=== PATIENT | female | born 1945 | race Two or more races ===

== ENCOUNTER 2025-02-26 10:25 | Inpatient (IN) | payer MEDICARE, MEDICAID ==
[~2025-02-26] VITALS: Ht 154.9 cm; Wt 77.1 kg
--- NOTE | 2025-02-26 11:10 | ED.PDOC ---
History of Present Illness HPI Comments 79 y.o female with PMHx of HTN, presents to the ED for an evaluation of abnormal labs. Patient reports having routine blood work drawn 3 days ago and got a call from her PCP today referring her to the ED due to hyponatremia. Patient does complain of generalized weakness and decreased appetite x 1 week, states she has been eating very little but has been drinking the recommended amount of water PCP advised per day which is 16 oz/day. Patient denies any pain, fever, chills, nausea, vomiting, confusion. Patient denies substance, alcohol or tobacco use. Patient is on Lasix due to leg swelling and had dosage increased recently. She does take supplemental potassium. She also takes hydrochlorothiazide. 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 Hx Family History Family History: Reviewed,noncontributory to illness Social History Smoker: Non-Smoker Alcohol: Denies ETOH Use Drugs: Denies Drug Use Lives In: Home Constitutional: reports: weakness; denies: chills, diaphoresis, fatigue, fever, malaise, sweats, others EENTM: denies: blurred vision, double vision, ear bleeding, ear discharge, ear drainage, ear pain, ear ringing, eye pain, eye redness, hearing loss, mouth pa in, mouth swelling, nasal discharge, nose bleeding, nose congestion, nose pain, photophobia, tearing, throat pain, throat swelling, voice changes, others Respiratory: denies: cough, hemoptysis, orthopnea, SOB at rest, shortness of breath, SOB with excertion, stridor, wheezing, others Cardiovascular: denies: chest pain, dizzy spells, diaphoresis, Dyspnea on exertion, edema, irregular heart beat, left arm pain, lightheadedness, palpitations, PND, syncope, others Gastrointestinal: reports: poor appetite; denies: abdomen distended, abdominal pain, blood streaked bowels, constipated, diarrhea, dysphagia, difficulty swallowing, hematemesis, melena, nausea, poor fluid intake, rectal bleeding, rectal pain, vomiting, others Genitourinary: denies: abnormal vagina bleeding, burning, dyspareunia, dysuria, flank pain, frequency, hematuria, incontinence, pain, , vagina discharge, urgency, others Neurological: denies: dizziness, fainting, headache, left sided numbness, left sided weakness, numbness, paresthesia, pre-existing deficit, right sided numbness, right sided weakness, seizure, speech problems, tingling, tremors, weakness, others Musculoskeletal: denies: back pain, gout, joint pain, joint swelling, muscle pain, muscle stiffness, neck pain, others Integumetry: denies: bruises, change in color, change in hair/nails, dryness, laceration, lesions, lumps, rash, wounds, others Allergic/Immunocompromised: denies: Difficulty Healing, Frequent Infections, Hives, Itching, others Hematologic/Lymphatic: denies: anemia, blood clots, easy bleeding, easy bruisi ng, swollen glands, others Endocrine: denies: excessive hunger, excessive sweating, excessive thirst, exce ssive urination, flushing, intolerance to cold, intolerance to heat, unexplained weight gain, unexplained weight loss, others Psychiatric: denies: anxiety, bipolar disorder, depression, hopeless, panic disorder, schizophrenia, sleepless, suicidal, others All Other Systems: Reviewed and Negative Physical Exam General Appearance: No Apparent Distress HEENT: Other (Pupils and face symmetric. Moist mucous membranes.) Neck: Full Range of Motion, Normal Inspection Respiratory: Lungs Clear, No Accessory Muscle Use, No Respiratory Distress, Normal Breath Sounds Cardiovascular: No JVD, Regular Rate/Rhythm Breast Exam: Deferred Gastrointestinal: Non Tender, Soft Genitalia: Deferred Pelvic: Deferred Rectal: Deferred Extremities: Normal range of motion, Non-tender, Pedal edema (Trace) Neurologic: Alert (Oriented x4), Normal Affect, Normal Mood, NOT DONE (Ambulatory) Cerebellar Function: NOT DONE Reflexes: NOT DONE Skin: Dry, Normal Color, Warm Lymphatic: NOT DONE Was a procedure done? Was a procedure done?: No EKG EKG : Comments Sinus rhythm, rate 63, normal SC and QRS intervals, QTC prolonged at 524, occasional PACs, normal axis, old inferior infarct, nonspecific T change. Differential Dx Considerations may include: Hyponatremia, Dehydration, Electrolyte imbalance, Kidney failure, CHF, thyroid disease, among others X-Ray, Labs, Meds, VS Vital Signs Date Time Temp Pulse Resp B/P (MAP) Pulse Ox O2 Delivery O2 Flow Rate FiO2 02/26/25 11:17 18 98 Room Air* 0 21 02/26/25 10:46 63 02/26/25 10:35 98.3 62 18 140/89 (106) 97 98.3 02/26/25 10:35 98.3 62 18 146/71 (96) 97 98.3 Lab Test 02/26/25 11:09 02/26/25 10:41 Range/Units White Blood Count 6.5 4.4-10.8 10^3/uL Red Blood Count 4.93 4.0-5.20 10^6/uL Hemoglobin 15.3 12.2-16.2 g/dL Hematocrit 42.8 36.0-46.0 % Mean Corpuscular Volume 86.9 80.0-100.0 fL Mean Corpuscular Hemoglobin 31.0 28.0-32.0 pg Mean Corpuscular Hemoglobin Concent 35.7 32.0-36.0 g/dL Red Cell Distribution Width 12.1 11.8-14.3 % Platelet Count 182 140-450 10^3/uL Mean Platelet Volume 10.0 6.9-10.8 fL Neutrophils (%) (Auto) 70.1 37.0-80.0 % Lymphocytes (%) (Auto) 19.5 10.0-50.0 % Monocytes (%) (Auto) 5.9 0.0-12.0 % Eosinophils (%) (Auto) 3.8 0.0-7.0 % Basophils (%) (Auto) 0.7 0.0-2.0 % Neutrophils # (Auto) 4.5 1.6-8.6 10 ^3/uL Lymphocytes # (Auto) 1.3 0.4-5.4 10 ^3/uL Monocytes # (Auto) 0.4 0-1.3 10 ^3/uL Eosinophils # (Auto) 0.2 0-0.8 10 ^3/uL Basophils # (Auto) 0 0-0.2 10 ^3/uL Nucleated Red Blood Cells 0.3 % Sodium Level 123 L 136-145 mmol/L Potassium Level 2.9 L 3.5-5.1 mmol/L Chloride Level 77 L 98-107 mmol/L Carbon Dioxide Level 33 H 20-31 mmol/L Anion Gap 13 5-15 Blood Urea Nitrogen 39 H 9-23 mg/dL Creatinine 1.69 H 0.550-1.02 mg/dL Glomerular Filtration Rate Calc 30 >90 mL/min BUN/Creatinine Ratio 23.1 H 10.0-20.0 Serum Glucose 146 H 74-106 mg/dL Calcium Level 10.9 H 8.7-10.4 mg/dL Urine Color Light-yellow Yellow Urine Clarity Clear Clear Urine pH 7.0 5.0-9.0 Urine Specific [place] 1.006 1.001-1.035 Urine Protein Negative Negative Urine Ketones Negative Negative Urine Blood Negative Negative /uL Urine Nitrite Negative Negative Urine Bilirubin Negative Negative Urine Urobilinogen Normal Negative mg/dL Urine Leukocyte Esterase Negative Negative /uL Urine RBC 1 0 - 4 /hpf Urine Microscopic WBC 1 0-5 /HPF Urine Squamous Epithelial Cells Few <5 /hpf Urine Bacteria Few H None Seen /hpf Urine Glucose Normal Normal mg/dL X-Ray, Labs, Meds, VS Comment 79-year-old female with a history of hypertension referred by primary physician for evaluation of abnormal labs including hyponatremia Vitals remarkable for BP 146/71 Exam unremarkable Rhythm strip independently interpreted by me: Sinus rhythm with PACs, rate 63 CBC normal, basic metabolic panel remarkable for sodium 123, potassium 2.9, chloride 77, CO2 33, BUN 39, creatinine 1.69, calcium 10.9 Patient treated with the following in the ED: 1 L 0.9 normal saline IV bolus, K rider 20 mEq IV Plan is to admit the patient for electrolyte correction and nephrology evaluation Time of 1ST Reevaluation: 11:10 Reevaluation 1ST: Unchanged Patient Education/Counseling: Diagnosis, Treatment, Prognosis Family Education/Counseling: Diagnosis, Treatment, Prognosis Departure 1 Departure Time of Disposition: 12:10 Impression: Primary Impression: Electrolyte imbalance Additional Impression: Renal insufficiency Disposition: 09 ADMITTED INPATIENT Admit to: Med Surg Condition: Fair Critical Care Note Critical Care Time?: No Stability Stability form required: No Heart Score Heart Score: Heart Score Response (Comments) Value History N/A 0 EKG N/A 0 Age N/A 0 Risk Factors N/A 0 Troponin N/A 0 Total 0 I personally scribed for KRISTIN GRULLON MD ([email or web address]) on 02/26/25 at 11:10. Electronically submitted by Aury Connolly ([email or web address]). KRISTIN GRULLON MD Feb 26, 2025 11:10
[2025-02-26 11:17] VITALS: RESP 18; O2SAT 98
[2025-02-26 11:32] LABS: Basophils # (auto) 0 10 ^3/uL (0-0.2); Basophils % (auto) 0.7 % (0.0-2.0); Eosinophils # (auto) 0.2 10 ^3/uL (0-0.8); Eosinophils % (auto) 3.8 % (0.0-7.0); Hematocrit 42.8 % (36.0-46.0); Hemoglobin 15.3 g/dL (12.2-16.2); Lymphocytes # (auto) 1.3 10 ^3/uL (0.4-5.4); Lymphocytes % (auto) 19.5 % (10.0-50.0); Mean Corpuscular Hgb Conc. 35.7 g/dL (32.0-36.0); Mean Corpuscular Volume 86.9 fL (80.0-100.0); Monocytes # (auto) 0.4 10 ^3/uL (0-1.3); Monocytes % (auto) 5.9 % (0.0-12.0); Neutrophils # (auto) 4.5 10 ^3/uL (1.6-8.6); Neutrophils % (auto) 70.1 % (37.0-80.0); Nucleated Red Blood Cells % 0.3 %; Platelet Count (auto) 182 10^3/uL (140-450); Red Blood Cells 4.93 10^6/uL (4.0-5.20); Red Cell Distribution Width 12.1 % (11.8-14.3); White Blood Cell 6.5 10^3/uL (4.4-10.8)
[2025-02-26 11:39] LABS: Urine Bacteria FEW /hpf (None Seen); Urine Blood Negative /uL (Negative); Urine Clarity Clear (Clear); Urine Color Light-Yellow (Yellow); Urine Protein, UAD Negative (Negative); Urine Specific Gravity 1.006 (1.001-1.035); Urine Squamous Epithelial Cell FEW /hpf (<5); Urine Urobilinogen Normal (Negative); Urine WBC 1 /HPF (0-5)
[2025-02-26 11:39] LABS: Anion Gap 13 (5-15)
[2025-02-26 11:43] LABS: Calcium 10.9 mg/dL (8.7-10.4)
[2025-02-26 11:44] LABS: BUN/Creatinine Ratio 23.1 (10.0-20.0)
[2025-02-26 11:45] LABS: Blood Urea Nitrogen 39 mg/dL (9-23); Carbon Dioxide 33 mmol/L (20-31); Chloride 77 mmol/L (98-107); Glucose 146 mg/dL (74-106); Potassium 2.9 mmol/L (3.5-5.1); Sodium 123 mmol/L (136-145)
[2025-02-26] MEDS: SODIUM CHLORIDE 0.9% 1,000 ML IV ONE (12:15)
[2025-02-26] MEDS: POTASSIUM CHL 20MEQ/100ML 100 ML IV ONE (12:53)
[2025-02-26] MEDS ORDERED: HYDROcodone-ACET 5/325MG TAB PO PRN (13:45)
[2025-02-26] MEDS ORDERED: ONDANSETRON HCL 4 MG/2 ML VIAL IV PRN (13:45)
[2025-02-26] MEDS ORDERED: ACETAMINOPHEN 325 MG TAB PO PRN (13:45)
[2025-02-26] MEDS: SODIUM CHLORIDE 0.9% 1,000 ML IV SCH (14:39)
--- NOTE | 2025-02-26 14:58 | DVHHP2 ---
History of Present Illness Reason for Visit: Electrolyte imbalance History of Present Illness The patient is a 79-year-old female with past medical history of hypertension who presented to [facility] ED for evaluation of abnormal labs. Patient reports having routine blood work drawn 3 days ago and got a call from her PCP today referring her to the ED due to imbalance electrolyte; complaining of generalized weakness, loss of appetite for the past 1 week. Patient was seen and evaluated in the ED, laboratory data shows WBC 6.5, platelets 182, sodium 123, potassium 2.9, BUN 39, creatinine 1.69, glucose 146, calcium 10.6, blood pressure 134/45, heart rate 56, temperature 97.8 F, O2 saturation 99% on room. Patient was given electrolyte replacement, please see medication orders section in the computer. On my assessment, patient denied chest pain, no headache, no dizziness, no palpitation, no diaphoresis, no shortness of breath, no nausea, no vomiting, no fever, no chills. Patient was admitted for further evaluation and medical management. Past Medical History HTN Past Surgical History Hysterectomy Family History Reviewed, noncontributory to the management of this case. Past Social History The patient lives at home, denies smoking, alcohol or illicit drugs abuse. Review of Systems Constitutional: Yes: Weakness; No: Fever, Chills, Sweats, Malaise, Other Eyes: No: Pain, Vision change, Conjunctivae inflammation, Eyelid inflammation, Other, Redness ENT: No: Ear pain, Ear discharge, Nose pain, Nose discharge, Nose congestion, Mouth pain, Mouth swelling, Throat pain, Throat swelling, Other Respiratory: No: Cough, Dry, Shortness of breath, SOB with excertion, Wheezing, Hemoptysis, Pleuritic Pain, Sputum, Wheezing, Other Cardiovascular: No: Chest Pain, Palpitations, Orthopnea, Paroxysmal Noc. Dyspnea, Edema, Lt Headedness, Other Gastrointestinal: Other (Poor appetite); No: Nausea, Vomiting, Abdominal Pain, Diarrhea, Constipation, Melena, Hematochezia Genitourinary: No Dysuria, No Frequency, No Incontinence, No Hematuria, No Retention, No Other Musculoskeletal: No: other, neck pain, shoulder pain, arm pain, back pain, hand pain, leg pain, foot pain Skin: No: Rash, Lesions, Jaundice, Bruising, Other Neurological: No: Weakness, Numbness, Incoordination, Change in speech, Confusion, Seizures, Other Allergies: Coded Allergies: NO KNOWN ALLERGIES (Unverified , 02/26/25) Medications Current Medications Medications Dose Ordered Sig/Laura Route Start Time Stop Time Status Last Admin Dose Admin Amlodipine Besylate 5 mg DAILY PO 02/27/25 10:00 Metoprolol Tartrate 25 mg BID PO 02/26/25 22:00 Sodium Chloride 1,000 ml @ 60 mls/hr [id number] IV 02/26/25 13:45 02/26/25 14:39 60 MLS/HR Acetaminophen/ Hydrocodone Bitart 1 tab Q4HP PRN PO 02/26/25 13:45 Ondansetron HCl 4 mg Q4HP PRN IV 02/26/25 13:45 Docusate Sodium 100 mg BIDPRN PRN PO 02/26/25 13:45 Acetaminophen 650 mg Q6HP PRN PO 02/26/25 13:45 Exam Vital Signs Vital Signs Date Time Temp Pulse Resp B/P (MAP) Pulse Ox O2 Delivery O2 Flow Rate FiO2 02/26/25 13:00 97.8 56 16 134/45 (74) 99 97.8 02/26/25 11:17 Room Air* 0 21 General Appearance: Alert, Oriented X3, Cooperative, No acute distress HEENT: Atraumatic, PERRLA, EOMI, Mucous membr. moist/pink Respiratory: Clear to auscultation, Normal air movement Cardiovascular: Regular rate, Normal S1, Normal S2, No murmurs Abdominal: Normal bowel sounds, Soft, No tenderness, No hepatospenomegaly, No masses Extremities: No clubbing, No cyanosis, No edema, Normal pulses, No tenderness/swelling Skin: No rashes, No breakdown, No significant lesion Neuro: Normal speech, Normal tone, Sensation intact, Cranial nerves 3-12 NL, Reflexes 2+, Other (Generalized weakness) Psych/Mental Status: Mental status NL, Mood NL Labs/Xrays Labs Test 02/26/25 11:09 02/26/25 10:41 Range/Units White Blood Count 6.5 4.4-10.8 10^3/uL Red Blood Count 4.93 4.0-5.20 10^6/uL Hemoglobin 15.3 12.2-16.2 g/dL Hematocrit 42.8 36.0-46.0 % Mean Corpuscular Volume 86.9 80.0-100.0 fL Mean Corpuscular Hemoglobin 31.0 28.0-32.0 pg Mean Corpuscular Hemoglobin Concent 35.7 32.0-36.0 g/dL Red Cell Distribution Width 12.1 11.8-14.3 % Platelet Count 182 140-450 10^3/uL Mean Platelet Volume 10.0 6.9-10.8 fL Neutrophils (%) (Auto) 70.1 37.0-80.0 % Lymphocytes (%) (Auto) 19.5 10.0-50.0 % Monocytes (%) (Auto) 5.9 0.0-12.0 % Eosinophils (%) (Auto) 3.8 0.0-7.0 % Basophils (%) (Auto) 0.7 0.0-2.0 % Neutrophils # (Auto) 4.5 1.6-8.6 10 ^3/uL Lymphocytes # (Auto) 1.3 0.4-5.4 10 ^3/uL Monocytes # (Auto) 0.4 0-1.3 10 ^3/uL Eosinophils # (Auto) 0.2 0-0.8 10 ^3/uL Basophils # (Auto) 0 0-0.2 10 ^3/uL Nucleated Red Blood Cells 0.3 % Sodium Level 123 L 136-145 mmol/L Potassium Level 2.9 L 3.5-5.1 mmol/L Chloride Level 77 L 98-107 mmol/L Carbon Dioxide Level 33 H 20-31 mmol/L Anion Gap 13 5-15 Blood Urea Nitrogen 39 H 9-23 mg/dL Creatinine 1.69 H 0.550-1.02 mg/dL Glomerular Filtration Rate Calc 30 >90 mL/min BUN/Creatinine Ratio 23.1 H 10.0-20.0 Serum Glucose 146 H 74-106 mg/dL Calcium Level 10.9 H 8.7-10.4 mg/dL Urine Color Light-yellow Yellow Urine Clarity Clear Clear Urine pH 7.0 5.0-9.0 Urine Specific [place] 1.006 1.001-1.035 Urine Protein Negative Negative Urine Ketones Negative Negative Urine Blood Negative Negative /uL Urine Nitrite Negative Negative Urine Bilirubin Negative Negative Urine Urobilinogen Normal Negative mg/dL Urine Leukocyte Esterase Negative Negative /uL Urine RBC 1 0 - 4 /hpf Urine Microscopic WBC 1 0-5 /HPF Urine Squamous Epithelial Cells Few <5 /hpf Urine Bacteria Few H None Seen /hpf Urine Glucose Normal Normal mg/dL Assessment/Plan Assessment/Plan Electrolyte imbalance Renal insufficiency Generalized weakness Plan 1. Admit to telemetry units 2. Breathing treatment 3. Pain control management 4. Management of fluids and electrolytes 5. Consultation for hospitalist 6. Diagnostic tests chest x-ray 7. DVT prophylaxis-on SCDs 8. Repeat labs CBC, CMP in a.m. 9. Continue with current medical management 10. Treatment plan discussed with patient and RN. Patient verbalized understanding. Plan discussed with: Patient, Other (RN) My Orders Orders - CLAIRE GARCIA DNP Procedure Category Date Status Time Amlodipine Tablet PHA 02/27/25 In Process (Norvasc Tablet) 10:00 Metoprolol Tartrate PHA 02/26/25 In Process Tablet (Lopressor Ta 22:00 Allergies DANE 02/26/25 In Process 13:45 Code Status CODE 02/26/25 Transmitted 13:45 Sodium Chloride 0.9% PHA 02/26/25 In Process 13:45 Oxygen Per Hour RT 02/26/25 Transmitted 13:45 Hydrocodone-Acet PHA 02/26/25 In Process 5/325mg Tab ([place] 13:45 Ondansetron Hcl PHA 02/26/25 In Process (Zofran) 13:45 Docusate Sodium PHA 02/26/25 In Process Capsule (Colace 13:45 Fall Risk Precautions DANE 02/26/[address] 13:45 Complete Blood Count LAB 02/27/25 Verified 04:00 Comprehensive LAB 02/27/25 Verified Metabolic Panel 04:00 Cardiac DIET 02/26/25 Transmitted Diet-2gna,Lofat,Lochol Dinner Condition: Serious DANE 02/26/25 In Process 13:45 Acetaminophen Tablet PHA 02/26/25 In Process (Tylenol Tablet) 13:45 Maintain Bed Rest DANE 02/26/25 In Process 13:45 Sequential DANE 02/26/25 In Process Compression Device Problem List: (1) Electrolyte imbalance (2) Renal insufficiency (3) Generalized weakness Date of Service: Feb 26, 2025 Billing Provider: CLAIRE GARCIA DNP Common Visit Codes: 35210-HPEDGNP INP/OBS CARE (HIGH) CLAIRE GARCIA DNP Feb 26, 2025 14:58
[2025-02-26] MEDS ORDERED: NITROGLYCERIN 0.4 MG SL TAB SL PRN (15:00)
[2025-02-26] MEDS ORDERED: MORPHINE SULFATE INJ 2 MG/ml SYRG IV PRN (15:00)
[2025-02-26] MEDS: POTASSIUM CHL 20 Meq TABLET PO ONE (15:03)
[2025-02-26 20:00] VITALS: PULSE 63; RESP 18; O2SAT 97
[2025-02-26 21:00] VITALS: PULSE 61; RESP 18; O2SAT 100
[2025-02-26 21:02] VITALS: BP 142/66; PULSE 58; RESP 18; TEMP 96; O2SAT 99
[2025-02-26] MEDS ORDERED: HYDR25TA5 PO (21:17)
[2025-02-26] MEDS ORDERED: POTA-211 PO (21:17)
[2025-02-26] MEDS ORDERED: METO-159 PO (21:17)
[2025-02-26] MEDS ORDERED: AMLO1TAB22 PO (21:17)
[2025-02-26] MEDS ORDERED: FURO40TA4 PO (21:17)
[2025-02-26] MEDS: METOPROLOL TARTRATE 25 MG TAB PO SCH (23:02)
[2025-02-27] VITALS (8 sets, daily range): BP systolic 127–151; BP diastolic 5–69; PULSE 52–72; RESP 16–19; TEMP 97.5–97.8; O2SAT 96–100
[2025-02-27 07:37] LABS: Alanine Aminotransferase 13 U/L (7-40); Albumin 4.1 g/dL (3.2-4.8); Alkaline Phosphatase 94 U/L (46-116); Anion Gap 11 (5-15); Aspartate Aminotransferase 21 U/L (13-40); BUN/Creatinine Ratio 26.3 (10.0-20.0); Calcium 10.3 mg/dL (8.7-10.4); Carbon Dioxide 30 mmol/L (20-31); Total Protein 6.9 g/dL (5.7-8.2)
[2025-02-27 07:38] LABS: Blood Urea Nitrogen 31 mg/dL (9-23); Chloride 91 mmol/L (98-107); Glucose 130 mg/dL (74-106); Potassium 2.6 mmol/L (3.5-5.1); Sodium 132 mmol/L (136-145)
[2025-02-27 07:47] LABS: Bilirubin, Total 1.4 mg/dL (0.2-1.0)
[2025-02-27 08:10] LABS: Basophils # (auto) 0 10 ^3/uL (0-0.2); Basophils % (auto) 0.5 % (0.0-2.0); Eosinophils # (auto) 0.3 10 ^3/uL (0-0.8); Eosinophils % (auto) 4.8 % (0.0-7.0); Hematocrit 40.6 % (36.0-46.0); Hemoglobin 14.2 g/dL (12.2-16.2); Lymphocytes # (auto) 1.3 10 ^3/uL (0.4-5.4); Lymphocytes % (auto) 22.3 % (10.0-50.0); Mean Corpuscular Hemoglobin 30.7 pg (28.0-32.0); Mean Corpuscular Hgb Conc. 34.9 g/dL (32.0-36.0); Monocytes # (auto) 0.5 10 ^3/uL (0-1.3); Monocytes % (auto) 7.9 % (0.0-12.0); Neutrophils # (auto) 3.8 10 ^3/uL (1.6-8.6); Neutrophils % (auto) 64.5 % (37.0-80.0); Nucleated Red Blood Cells % 0.2 %; Platelet Count (auto) 157 10^3/uL (140-450); Red Blood Cells 4.61 10^6/uL (4.0-5.20); Red Cell Distribution Width 12.3 % (11.8-14.3); White Blood Cell 5.8 10^3/uL (4.4-10.8)
[2025-02-27] MEDS: amLODIPine BESYLATE 5 MG TAB PO SCH (09:46)
[2025-02-27] MEDS ORDERED: OFL50TS EACHEYE (10:50)
[2025-02-27] MEDS ORDERED: OFL50TS (10:50)
--- NOTE | 2025-02-27 11:01 | DVHPN2 ---
Subjective Patient denies any symptoms Reviewed: Care Plan, H&P, Labs, Medications Changes from previous H/P or p: No Changes Eyes: No Pain, No Vision change, No Conjunctivae inflammation, No Eyelid inflammation, No Other, No Redness ENT: No Ear pain, No Ear discharge, No Nose pain, No Nose discharge, No Nose congestion, No Mouth pain, No Mouth swelling, No Throat pain, No Throat swelling, No Other Cardiovascular: No Chest Pain, No Palpitations, No Orthopnea, No Paroxysmal Noc. Dyspnea, No Edema, No Lt Headedness, No Other Respiratory: No Cough, No Dry, No Shortness of breath, No SOB with excertion, No Wheezing, No Hemoptysis, No Pleuritic Pain, No Sputum, No Other Gastrointestinal: No Nausea, No Vomiting, No Abdominal Pain, No Diarrhea, No Constipation, No Melena, No Hematochezia; Other (Poor appetite) Genitourinary: No Dysuria, No Frequency, No Incontinence, No Hematuria, No Retention, No Other Musculoskeletal: No other, No neck pain, No shoulder pain, No arm pain, No back pain, No hand pain, No leg pain, No foot pain Skin: No Rash, No Lesions, No Jaundice, No Bruising, No Other Objective Vitals Vital Signs Date Time Temp Pulse Resp B/P (MAP) Pulse Ox O2 Delivery O2 Flow Rate FiO2 02/27/25 09:46 128/55 02/27/25 09:45 70 02/27/25 09:30 97.5 16 99 97.5 02/26/25 21:00 Room Air* 0 21 Intake/Output Intake and Output 02/27/25 07:00 Intake Total 1660 ml Balance 1660 ml Intake Oral 200 ml IV Total 1460 ml # Voids 1 General Appearance: Alert, Oriented X3, Cooperative, No acute distress HEENT: Atraumatic, PERRLA Cardiovascular: Normal S1, Normal S2 Abdomen: Normal bowel sounds, Soft, No tenderness, No hepatospenomegaly Musculoskeletal: Normal sensory function, Normal motor function Neuro: Normal gait, Normal speech Skin: Dry, Intact Psych/Mental Status: Mental status NL, Mood NL Medications Current Medications Medications Dose Ordered Sig/Laura Route Start Time Stop Time Status Last Admin Dose Admin Acetaminophen/ Hydrocodone Bitart 1 tab Q4HP PRN PO 02/26/25 13:45 Ondansetron HCl 4 mg Q4HP PRN IV 02/26/25 13:45 Docusate Sodium 100 mg BIDPRN PRN PO 02/26/25 13:45 Acetaminophen 650 mg Q6HP PRN PO 02/26/25 13:45 Nitroglycerin 0.4 mg Q5MINP PRN SL 02/26/25 15:00 Morphine Sulfate 2 mg Q30M PRN IV 02/26/25 15:00 Metoprolol Tartrate 50 mg BID PO 02/27/25 22:00 UNV Laboratory Results Laboratory Tests 02/27/25 06:55 Chemistry Test 02/26/25 11:09 02/27/25 06:55 Calcium Level 10.9 mg/dL (8.7-10.4) H 10.3 mg/dL (8.7-10.4) Albumin 4.1 g/dL (3.2-4.8) Magnesium Level Pending Total Protein 6.9 g/dL (5.7-8.2) LFT Test 02/27/25 06:55 Alanine Aminotransferase (ALT) 13 U/L (7-40) Alkaline Phosphatase 94 U/L (46-116) Aspartate Amino Transferase (AST) 21 U/L (13-40) Total Bilirubin 1.4 mg/dL (0.2-1.0) H Urinalysis Test 02/26/25 10:41 Urine Color Light-yellow (Yellow) Urine Clarity Clear (Clear) Urine pH 7.0 (5.0-9.0) Urine Specific [place] 1.006 (1.001-1.035) Urine Protein Negative (Negative) Urine Ketones Negative (Negative) Urine Blood Negative /uL (Negative) Urine Nitrite Negative (Negative) Urine Bilirubin Negative (Negative) Urine Urobilinogen Normal mg/dL (Negative) Urine Leukocyte Esterase Negative /uL (Negative) Urine RBC 1 /hpf (0 - 4) Urine Microscopic WBC 1 /HPF (0-5) Urine Squamous Epithelial Cells Few /hpf (<5) Urine Bacteria Few /hpf (None Seen) H Urine Glucose Normal mg/dL (Normal) Labs and/or images reviewed: Labs reviewed by me, Image(s) reviewed by me Assessment/Plan Assessment/Plan Impression: -severe hypokalemia -primary hypertension -chronic diastolic heart failure -obesity -hyponatremia Plan: Events: Patient's potassium 2.6 today despite having supplementation yesterday. No swelling noted in her lower extremities. -stop amlodipine given hyponatremia -increase metoprolol tartrate to 50 mg p.o. b.i.d.. Patient's home dose noted to be 100 mg p.o. b.i.d. -potassium replacement, 60 mEq use IV -check magnesium level -repeat labs in a.m. Total time spent with patient discussing and formulating plan of care: 35 minutes. This medical document was created using an electronic medical record system with [employer] dictation system. Although this document has been carefully reviewed, there may still be some phonetic and typographical errors. These areas are purely typographical due to imperfections of the software programs, and do not reflect any compromise in the patient's medical care. Plan discussed with: Patient, Other (RN) My Orders Orders - RIVAS VASQUEZ NP Procedure Category Date Status Time Metoprolol Tartrate PHA 02/27/25 Logged Tablet (Lopressor Ta 22:00 Potassium Chloride PHA 02/27/25 Logged (Potassium Chloride). 10:45 Magnesium LAB 02/27/25 In Process 10:36 Basic Metabolic Panel LAB 02/28/25 Verified 04:00 Magnesium LAB 02/28/25 Verified 04:00 Date of Service: Feb 27, 2025 Billing Provider: RIVAS VASQUEZ NP Common Visit Codes: [id number] INP/OBS CARE(HIGH) RIVAS VASQUEZ NP Feb 27, 2025 11:01
--- NOTE | 2025-02-27 11:08 | ECG ---
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
[2025-02-27] MEDS ORDERED: MORPHINE SULFATE 4 MG/ML SYR/VIAL IV PRN (11:30)
[2025-02-27] MEDS: POTASSIUM CHLORIDE 60 MEQ, LIDOCAINE 1% (LOCAL ANESTH.) 6 ML in SODIUM CHL 0.9% 500 ML IV ONE (12:25)
[2025-02-27] MEDS: METOPROLOL TARTRATE 25 MG TAB PO SCH (21:16)
[2025-02-28 01:00] VITALS: BP 133/79; PULSE 65; RESP 17; TEMP 97.4; O2SAT 99
[2025-02-28 05:00] VITALS: BP 147/67; PULSE 63; RESP 17; TEMP 97.4; O2SAT 98
[2025-02-28 06:23] LABS: Chloride 100 mmol/L (98-107); Potassium 3.5 mmol/L (3.5-5.1); Sodium 138 mmol/L (136-145)
[2025-02-28 06:24] LABS: Anion Gap 10 (5-15); Carbon Dioxide 28 mmol/L (20-31)
[2025-02-28 06:26] LABS: Calcium 10.5 mg/dL (8.7-10.4)
[2025-02-28 06:29] LABS: Glucose 119 mg/dL (74-106)
[2025-02-28 06:30] LABS: BUN/Creatinine Ratio 21.1 (10.0-20.0); Blood Urea Nitrogen 24 mg/dL (9-23)
[2025-02-28 08:00] VITALS: PULSE 61; RESP 18; O2SAT 99
[2025-02-28 08:47] VITALS: BP 138/51; PULSE 71; RESP 16; TEMP 98; O2SAT 99
[2025-02-28] MEDS: DOCUSATE SOD 100 MG CAP PO PRN (09:17)
[2025-02-28] MEDS ORDERED: POTA8TAB38 PO (09:51)
[2025-02-28 10:21] VITALS: BP 135/55; PULSE 71; RESP 19; TEMP 36.7; O2SAT 99
--- NOTE | 2025-02-28 11:23 | DVHDS2 ---
Discharge Summary Date of Admission Feb 26, 2025 at 14:56 Date of Discharge: Feb 28, 2025 Admitting Diagnosis Hypokalemia, hyponatremia Labs/Diagnostic Data: Laboratory Results Test 02/28/25 04:54 02/27/25 06:55 02/26/25 10:41 Sodium Level 138 mmol/L (136-145) Potassium Level 3.5 mmol/L (3.5-5.1) Chloride Level 100 mmol/L (98-107) Carbon Dioxide Level 28 mmol/L (20-31) Anion Gap 10 (5-15) Blood Urea Nitrogen 24 mg/dL (9-23) Creatinine 1.14 mg/dL (0.550-1.02) Glomerular Filtration Rate Calc 49 mL/min (>90) BUN/Creatinine Ratio 21.1 (10.0-20.0) Serum Glucose 119 mg/dL (74-106) Calcium Level 10.5 mg/dL (8.7-10.4) Magnesium Level 2.0 mg/dL (1.6-2.6) White Blood Count 5.8 10^3/uL (4.4-10.8) Red Blood Count 4.61 10^6/uL (4.0-5.20) Hemoglobin 14.2 g/dL (12.2-16.2) Hematocrit 40.6 % (36.0-46.0) Mean Corpuscular Volume 88.0 fL (80.0-100.0) Mean Corpuscular Hemoglobin 30.7 pg (28.0-32.0) Mean Corpuscular Hemoglobin Concent 34.9 g/dL (32.0-36.0) Red Cell Distribution Width 12.3 % (11.8-14.3) Platelet Count 157 10^3/uL (140-450) Mean Platelet Volume 10.1 fL (6.9-10.8) Neutrophils (%) (Auto) 64.5 % (37.0-80.0) Lymphocytes (%) (Auto) 22.3 % (10.0-50.0) Monocytes (%) (Auto) 7.9 % (0.0-12.0) Eosinophils (%) (Auto) 4.8 % (0.0-7.0) Basophils (%) (Auto) 0.5 % (0.0-2.0) Neutrophils # (Auto) 3.8 10 ^3/uL (1.6-8.6) Lymphocytes # (Auto) 1.3 10 ^3/uL (0.4-5.4) Monocytes # (Auto) 0.5 10 ^3/uL (0-1.3) Eosinophils # (Auto) 0.3 10 ^3/uL (0-0.8) Basophils # (Auto) 0 10 ^3/uL (0-0.2) Nucleated Red Blood Cells 0.2 % Total Bilirubin 1.4 mg/dL (0.2-1.0) Aspartate Amino Transferase (AST) 21 U/L (13-40) Alanine Aminotransferase (ALT) 13 U/L (7-40) Alkaline Phosphatase 94 U/L (46-116) Total Protein 6.9 g/dL (5.7-8.2) Albumin 4.1 g/dL (3.2-4.8) Urine Color Light-yellow (Yellow) Urine Clarity Clear (Clear) Urine pH 7.0 (5.0-9.0) Urine Specific [place] 1.006 (1.001-1.035) Urine Protein Negative (Negative) Urine Ketones Negative (Negative) Urine Blood Negative /uL (Negative) Urine Nitrite Negative (Negative) Urine Bilirubin Negative (Negative) Urine Urobilinogen Normal mg/dL (Negative) Urine Leukocyte Esterase Negative /uL (Negative) Urine RBC 1 /hpf (0 - 4) Urine Microscopic WBC 1 /HPF (0-5) Urine Squamous Epithelial Cells Few /hpf (<5) Urine Bacteria Few /hpf (None Seen) Urine Glucose Normal mg/dL (Normal) Other Laboratory Tests 02/28/25 04:54 02/27/25 06:55 Brief Hx & Hospital Course: History of Present Illness The patient is a 79-year-old female with past medical history of hypertension who presented to [facility] ED for evaluation of abnormal labs. Patient reports having routine blood work drawn 3 days ago and got a call from her PCP today referring her to the ED due to imbalance electrolyte; complaining of generalized weakness, loss of appetite for the past 1 week. Patient was seen and evaluated in the ED, laboratory data shows WBC 6.5, platelets 182, sodium 123, potassium 2.9, BUN 39, creatinine 1.69, glucose 146, calcium 10.6, blood pressure 134/45, heart rate 56, temperature 97.8 F, O2 saturation 99% on room. Patient was given electrolyte replacement, please see medication orders section in the computer. On my assessment, patient denied chest pain, no headache, no dizziness, no palpitation, no diaphoresis, no shortness of breath, no nausea, no vomiting, no fever, no chills. Patient was admitted for further evaluation and medical management. Course of hospitalization: Patient was given appropriate electrolyte replete. Patient also was restarted on metoprolol tartrate, with amlodipine being held secondary to hyponatremia. Discussion was made with the patient regarding her home medications. Apparently she takes Lasix 40 mg p.o. daily with 10 mEq of potassium supplementation daily. Patient will be discharged home. She will also stop amlodipine, continue metoprolol tartrate, and have her potassium supplementation increased to [place]- Con 16 mEq use daily. She is instructed to follow up with her PCP in 1-2 weeks and have outpatient blood work. Patient was agreeable with discharge plan. All questions answered. Physical examination General: Alert and Oriented x3. No acute distress. Well-nourished. Eyes: EOMI. Anicteric. HENT: Moist mucous membranes. Lungs: Clear to auscultation bilaterally. No accessory muscle use. Cardiovascular: Regular rate and rhythm. No murmur. No JVD. Abdomen: Soft, non-tender and non-distended. No palpable masses. Extremities: No edema. Non-tender. Skin: No rashes or lesions. Warm. Neurologic: No focal neurological deficits. CN II-XII grossly intact, but not individually tested. Psychiatric: Cooperative. Appropriate mood and affect. Total time spent with patient discussing and formulating plan of care: 35 minutes. This medical document was created using an electronic medical record system with [employer] dictation system. Although this document has been carefully reviewed, there may still be some phonetic and typographical errors. These areas are purely typographical due to imperfections of the software programs, and do not reflect any compromise in the patient's medical care. Condition at Discharge: Fair Final Diagnosis/Problems List Hypokalemia Diagnosis: -severe hypokalemia -primary hypertension -chronic diastolic heart failure -obesity -hyponatremia -acute kidney injury, vasomotor nephropathy Discharge Disposition: Home Discharge Instruct/Medications Diet: Cardiac 2g Na,low cholest Activity: No Restrictions, As Tolerated Follow Up/Referral: Follow up with PCP in 1-2 weeks Medications: Continue all home medications, except Amlodipine. Increase potassium to 16meq daily 36 Discharge Statement: "Patient was advised to return to the ER or call 911 if any headaches, dizziness, shortness of breath, chest pain, abdominal pain, bleeding, fevers, or worsening of medical condition. Patient was counseled about treatment plan, medications, possible side effects, patientverbalized understanding. All questions were answered to the best of my ability. This discharge took greater then 30 minutes in planning, reviewing documentation, counseling the patient, and discussing with other team members." ASSESSMENT ASSESSMENT Assessment Hypokalemia Date of Service: Feb 28, 2025 Billing Provider: RIVAS VASQUEZ NP Common Visit Codes: 85217-HSK/OBS DISCH DAY >30min RIVAS VASQUEZ NP Feb 28, 2025 11:23
== END 2025-02-28 13:10 | disposition home or self-care (01) | DRG 640 ==
LOC: ER 10:25 → OVERFLOW 14:56 → TELE-WESTW 21:02
PROVIDERS: ADMIT Nurse Practitioner Acute Care; ATTEND Nurse Practitioner Acute Care
DX: E87.1 Hypo-osmolality and hyponatremia (principal); N17.0 Acute kidney failure with tubular necrosis; I50.32 Chronic diastolic (congestive) heart failure; E87.6 Hypokalemia; E66.9 Obesity, unspecified; I11.0 Hypertensive heart disease with heart failure; Z79.899 Other long term (current) drug therapy; Z90.710 Acquired absence of both cervix and uterus
CPT/HCPCS: 36415; 80048; 80053; 81001; 83735; 85025; 93005; 96360; G0378; J2003; J3480